=== PATIENT | female | born 1975 | race Caucasian/White ===

== ENCOUNTER 2016-11-04 17:43 | Emergency (ER) | payer MEDICAID ==
[~2016-11-04] VITALS: Ht 175.3 cm; Wt 60.0 kg
[~2016-11-04 17:43] MED LIST: CYCL7.5T25 PO; DIVA125T2 PO; DIVA500T9 PO; METH500T97 PO; OXYC-229 PO
[2016-11-04] MEDS ORDERED: SODIUM CHLORIDE 0.9% 1,000ML IVBOLUS ONE (18:00)
[2016-11-04] MEDS ORDERED: SODIUM CHLORIDE FLUSH 10ML SYR IVF ONE (18:00)
[2016-11-04] MEDS ORDERED: PROCHLORPERAZINE 5 MG/ML, 2ML IVPush ONE (18:00)
[2016-11-04] MEDS ORDERED: ONDANSETRON 2MG/ML, 2ML IVPush ONE (18:00)
[2016-11-04] MEDS ORDERED: TRAZ100T15 PO (18:15)
[2016-11-04] MEDS ORDERED: HYDR50TA13 PO (18:15)
[2016-11-04] MEDS ORDERED: GABA300C10 PO (18:15)
[2016-11-04] MEDS ORDERED: BENZ0.5T PO (18:15)
[2016-11-04] MEDS ORDERED: DIVA250T14 PO (18:15)
[2016-11-04] MEDS ORDERED: PRAZ2CAP2 PO (18:15)
[2016-11-04] MEDS ORDERED: BUSP15TA PO (18:15)
[2016-11-04] MEDS ORDERED: ONDANSETRON 2MG/ML, 2ML ONE (18:22)
[2016-11-04] MEDS ORDERED: PROCHLORPERAZINE 5 MG/ML, 2ML ONE (18:22)
[2016-11-04 18:34] LABS: BLOOD UREA NITROGEN 13 mg/dL (7-18)
[2016-11-04 18:39] LABS: ASPARTATE AMINO TRANSFERASE 18 U/L (15-37)
[2016-11-04 20:39] VITALS: BP 122/64
== END 2016-11-04 20:42 | disposition home or self-care (01) ==
LOC: ED 20:20
DX: R11.2 Nausea with vomiting, unspecified (principal)
CPT/HCPCS: 36415; 80053; 81001; 83605; 85025; 87086; 96361; 96374; 99284; J0780; J7030

== ENCOUNTER 2017-03-30 10:44 | Emergency (ER) | payer MEDICAID ==
[~2017-03-30] VITALS: Ht 175.3 cm; Wt 53.0 kg
[~2017-03-30 10:44] MED LIST changes: +BENZ0.5T PO; +BUSP15TA PO; +DIVA-68 PO; +DIVA250T14 PO; -DIVA500T9 PO; +GABA300C10 PO; +HYDR50TA13 PO; -OXYC-229 PO; +OXYC-307 PO; +PRAZ2CAP2 PO; +TRAZ100T15 PO
[2017-03-30 11:05] VITALS: BP 130/82
[2017-03-30] MEDS ORDERED: METHOCARBAMOL 750 MG TABLET PO ONE (11:30)
[2017-03-30] MEDS ORDERED: KETOROLAC 30 MG/1 ML IM ONE (11:30)
[2017-03-30] MEDS ORDERED: METHOCARBAMOL 750 MG TABLET ONE (11:40)
[2017-03-30] MEDS ORDERED: KETOROLAC 30 MG/1 ML ONE (11:40)
== END 2017-03-30 12:43 | disposition home or self-care (01) ==
LOC: ED 12:37
DX: S16.1XXA Strain of muscle, fascia and tendon at neck level, initial encounter (principal); F43.10 Post-traumatic stress disorder, unspecified; M41.9 Scoliosis, unspecified; M79.7 Fibromyalgia; F31.9 Bipolar disorder, unspecified; W22.8XXA Striking against or struck by other objects, initial encounter; Y93.89 Activity, other specified; Y92.098 Other place in other non-institutional residence as the place of occurrence of the external cause; Y99.8 Other external cause status
CPT/HCPCS: 72050; 96372; 99284; J1885

== ENCOUNTER 2017-08-24 10:52 | Emergency (ER) | payer MEDICAID ==
[~2017-08-24] VITALS: Ht 175.3 cm; Wt 64.3 kg
[~2017-08-24 10:52] MED LIST changes: +QUET50TA5 PO
[2017-08-24 11:53] VITALS: BP 127/76
[2017-08-24] MEDS ORDERED: SODIUM CHLORIDE 0.9% 1,000ML IVBOLUS ONE (12:00)
[2017-08-24] MEDS ORDERED: SODIUM CHLORIDE FLUSH 10ML SYR IVF ONE (12:00)
[2017-08-24 12:06] LABS: BASOPHILS # (AUTO) 0.02 x10^3/uL (0-0.1); BASOPHILS % (AUTO) 0 % (0-1); EOSINOPHILS # (AUTO) 0.02 x10^3/uL (0-0.4); EOSINOPHILS % (AUTO) 0 % (1-7); LYMPHOCYTES # (AUTO) 1.81 x10^3/uL (1-3.4); LYMPHOCYTES % (AUTO) 26 % (22-44); MD NO; MEAN CORPUSCULAR HEMOGLOBIN 31.5 pg (27.0-34.8); MEAN CORPUSCULAR HGB CONC 33.3 g/dL (32.4-35.8); MEAN CORPUSCULAR VOLUME 94.4 fL (80-100); MONOCYTES # (AUTO) 0.55 x10^3/uL (0.2-0.8); MONOCYTES % (AUTO) 8 % (2-9); NEUTROPHILS # (AUTO) 4.69 x10^3/uL (1.8-6.8); NEUTROPHILS % (AUTO) 66 % (42-75); PLATELET COUNT 417 x10^3/uL (130-400); RED BLOOD COUNT 4.18 x10^6/uL (3.82-5.3); RED CELL DISTRIBUTION WIDTH 13.1 % (9.6-15.2)
[2017-08-24 12:29] LABS: ALBUMIN 3.8 g/dL (3.4-5.0); ANION GAP 8 mmol/L (5-15); CALCIUM 8.8 mg/dL (8.5-10.1); CHLORIDE 110 mmol/L (98-107); CREATININE 0.58 mg/dL (0.55-1.02)
[2017-08-24 12:33] LABS: FREE T4 (FREE THYROXINE) 1.02 ng/dL (0.76-1.46); TROPONIN I < 0.015 ng/mL (0.000-0.045)
== END 2017-08-24 13:46 | disposition home or self-care (01) ==
LOC: ED 12:20
DX: R00.2 Palpitations (principal); M41.9 Scoliosis, unspecified; M19.90 Unspecified osteoarthritis, unspecified site; F31.9 Bipolar disorder, unspecified; F17.200 Nicotine dependence, unspecified, uncomplicated
CPT/HCPCS: 36415; 70450; 71045; 80048; 82040; 84439; 84443; 84484; 84703; 85025; 93005; 96360; 96361; 99285; J7030

== ENCOUNTER 2017-09-04 13:20 | Inpatient (IN) | payer MEDICAID ==
[~2017-09-04] VITALS: Ht 175.3 cm; Wt 70.3 kg
[2017-09-04] MEDS ORDERED: ALBUTEROL/IPRATROPIUM 2.5MG/0.5MG, 3 ML NPPB SCH (14:00)
[2017-09-04 14:26] LABS: RAPID INFLUENZA A Negative (Negative); RAPID INFLUENZA B Negative (Negative)
[2017-09-04] MEDS ORDERED: ALBUTEROL/IPRATROPIUM 2.5MG/0.5MG, 3 ML ONE (14:26)
[2017-09-04 14:27] LABS: BASOPHILS # (AUTO) 0.05 x10^3/uL (0-0.1); BASOPHILS % (AUTO) 1 % (0-1); EOSINOPHILS % (AUTO) 0 % (1-7); LYMPHOCYTES # (AUTO) 1.25 x10^3/uL (1-3.4); LYMPHOCYTES % (AUTO) 13 % (22-44); MD NO; MEAN CORPUSCULAR HEMOGLOBIN 31.6 pg (27.0-34.8); MEAN CORPUSCULAR HGB CONC 33.4 g/dL (32.4-35.8); MEAN CORPUSCULAR VOLUME 94.6 fL (80-100); MONOCYTES # (AUTO) 1.11 x10^3/uL (0.2-0.8); MONOCYTES % (AUTO) 12 % (2-9); NEUTROPHILS # (AUTO) 7.12 x10^3/uL (1.8-6.8); NEUTROPHILS % (AUTO) 75 % (42-75); PLATELET COUNT 354 x10^3/uL (130-400); RED BLOOD COUNT 4.24 x10^6/uL (3.82-5.3); RED CELL DISTRIBUTION WIDTH 13.8 % (9.6-15.2)
[2017-09-04 14:38] LABS: ALBUMIN 3.9 g/dL (3.4-5.0); ANION GAP 9 mmol/L (5-15); CALCIUM 8.3 mg/dL (8.5-10.1); CHLORIDE 107 mmol/L (98-107); CREATININE 0.68 mg/dL (0.55-1.02)
[2017-09-04] MEDS ORDERED: ACETAMINOPHEN 500 MG TABLET PO ONE (15:00)
[2017-09-04] MEDS ORDERED: ACETAMINOPHEN 500 MG TABLET ONE (15:21)
[2017-09-04] MEDS ORDERED: CEFTRIAXONE PMX 1GM/50ML 50 ML ONE (17:11)
[2017-09-04] MEDS ORDERED: AZITHROMYCIN 500 MG in SODIUM CHLORIDE 0.9% 250 ML IVPB ONE (17:30)
[2017-09-04] MEDS ORDERED: CEFTRIAXONE PMX 1GM/50ML 50 ML IVPB ONE (17:30)
[2017-09-04] MEDS ORDERED: SODIUM CHLORIDE FLUSH 10ML SYR IVF PRN (18:00)
[2017-09-04] MEDS ORDERED: ACETAMINOPHEN 325 MG TABLET PO ONE (18:30)
[2017-09-04] MEDS ORDERED: DOCUSATE 100 MG CAPSULE PO PRN (19:30)
[2017-09-04] MEDS ORDERED: ONDANSETRON ODT 4 MG PO PRN (19:30)
[2017-09-04] MEDS ORDERED: ALBUTEROL/IPRATROPIUM 2.5MG/0.5MG, 3 ML IPPB PRN (19:30)
[2017-09-04 19:47] VITALS: BP 111/70
[2017-09-04] MEDS: NAPROXEN 250 MG TABLET PO SCH (21:24)
[2017-09-04] MEDS: hydrOXyzine 50MG TABLET PO SCH (21:25)
[2017-09-04 21:33] VITALS: BP 111/70
[2017-09-05 03:00] VITALS: BP 98/75
[2017-09-05 06:00] LABS: ANION GAP 7 mmol/L (5-15); CALCIUM 7.8 mg/dL (8.5-10.1); CHLORIDE 112 mmol/L (98-107)
[2017-09-05 06:03] LABS: CREATININE 0.56 mg/dL (0.55-1.02)
[2017-09-05 07:00] VITALS: BP 105/71
[2017-09-05] MEDS: NAPROXEN 500 MG TABLET PO SCH (08:18)
[2017-09-05 12:55] VITALS: BP 118/71
[2017-09-05] MEDS: GUAIFENESIN/DM 100-10MG, 5ML UDC PO PRN ×2 (15:50→22:56)
[2017-09-05] MEDS: ALBUTEROL/IPRATROPIUM 2.5MG/0.5MG, 3 ML NPPB SCH ×2 (16:12→19:34)
[2017-09-05] MEDS ORDERED: NICOTINE 7 MG/24 HR PATCH.TD24 ONE (16:54)
[2017-09-05] MEDS: NAPROXEN 250 MG TABLET PO SCH (16:57)
[2017-09-05] MEDS: NICOTINE 7 MG/24 HR PATCH.TD24 TD SCH (16:58)
[2017-09-05] MEDS: AZITHROMYCIN 500 MG in SODIUM CHLORIDE 0.9% 250 ML IV SCH (18:42)
[2017-09-05 20:20] VITALS: BP 112/65
[2017-09-05] MEDS: hydrOXyzine 50MG TABLET PO SCH (20:23)
[2017-09-05] MEDS: CEFTRIAXONE PMX 1GM/50ML 50 ML IV SCH (20:23)
[2017-09-05] MEDS: TEMAZEPAM 15 MG CAPSULE PO PRN (22:56)
[2017-09-06] MEDS: ACETAMINOPHEN 325 MG TABLET PO PRN ×3 (01:25→15:39)
[2017-09-06 01:27] VITALS: BP 90/58
[2017-09-06] MEDS: ALBUTEROL/IPRATROPIUM 2.5MG/0.5MG, 3 ML NPPB SCH ×2 (07:00→11:34)
[2017-09-06] MEDS: GUAIFENESIN/DM 100-10MG, 5ML UDC PO PRN ×3 (07:39→20:19)
[2017-09-06] MEDS: NAPROXEN 500 MG TABLET PO SCH (07:39)
[2017-09-06 07:41] VITALS: BP 116/71
[2017-09-06 13:05] VITALS: BP 115/70
[2017-09-06] MEDS: NICOTINE 7 MG/24 HR PATCH.TD24 TD SCH (15:31)
[2017-09-06] MEDS ORDERED: ALBUTEROL/IPRATROPIUM 2.5MG/0.5MG, 3 ML ONE (15:50)
[2017-09-06] MEDS: AZITHROMYCIN 500 MG in SODIUM CHLORIDE 0.9% 250 ML IV SCH (18:54)
[2017-09-06] MEDS: NAPROXEN 250 MG TABLET PO SCH (18:54)
[2017-09-06 20:06] VITALS: BP 124/69
[2017-09-06] MEDS: hydrOXyzine 50MG TABLET PO SCH (20:19)
[2017-09-06] MEDS: CEFTRIAXONE PMX 1GM/50ML 50 ML IV SCH (20:19)
[2017-09-06] MEDS: TEMAZEPAM 15 MG CAPSULE PO PRN (22:31)
[2017-09-07 03:02] VITALS: BP 122/70
[2017-09-07 05:30] LABS: BASOPHILS # (AUTO) 0.03 x10^3/uL (0-0.1); BASOPHILS % (AUTO) 0 % (0-1); EOSINOPHILS # (AUTO) 0.01 x10^3/uL (0-0.4); EOSINOPHILS % (AUTO) 0 % (1-7); LYMPHOCYTES % (AUTO) 43 % (22-44); MD NO; MEAN CORPUSCULAR HEMOGLOBIN 31.8 pg (27.0-34.8); MEAN CORPUSCULAR HGB CONC 33.1 g/dL (32.4-35.8); MEAN CORPUSCULAR VOLUME 96.1 fL (80-100); MEAN PLATELET VOLUME 7.1 fL (7.4-10.4); MONOCYTES # (AUTO) 0.73 x10^3/uL (0.2-0.8); MONOCYTES % (AUTO) 10 % (2-9); NEUTROPHILS # (AUTO) 3.66 x10^3/uL (1.8-6.8); NEUTROPHILS % (AUTO) 47 % (42-75); PLATELET COUNT 306 x10^3/uL (130-400); RED BLOOD COUNT 3.35 x10^6/uL (3.82-5.3); RED CELL DISTRIBUTION WIDTH 13.4 % (9.6-15.2)
[2017-09-07 05:31] LABS: CHLORIDE 111 mmol/L (98-107)
[2017-09-07 05:43] LABS: ALANINE AMINOTRANSFERASE 19 U/L (12-78); ALBUMIN 2.9 g/dL (3.4-5.0); ALKALINE PHOSPHATASE 67 U/L (45-117); ANION GAP 7 mmol/L (5-15); BILIRUBIN,TOTAL 0.3 mg/dL (0.2-1.0); CREATININE 0.58 mg/dL (0.55-1.02); TOTAL PROTEIN 6.4 g/dL (6.4-8.2)
[2017-09-07 07:45] VITALS: BP 129/79
[2017-09-07] MEDS: GUAIFENESIN/DM 100-10MG, 5ML UDC PO PRN ×2 (08:44→19:17)
[2017-09-07] MEDS: NAPROXEN 500 MG TABLET PO SCH (08:44)
[2017-09-07] MEDS ORDERED: ALBUTEROL SULFATE 2.5 MG/3 ML ONE (11:15)
[2017-09-07 14:39] VITALS: BP 126/79
[2017-09-07] MEDS: ACETAMINOPHEN 325 MG TABLET PO PRN ×2 (14:43→19:17)
[2017-09-07] MEDS ORDERED: ALBUTEROL/IPRATROPIUM 2.5MG/0.5MG, 3 ML NPPB PRN (15:00)
[2017-09-07] MEDS: NICOTINE 7 MG/24 HR PATCH.TD24 TD SCH (17:17)
[2017-09-07] MEDS: AZITHROMYCIN 500 MG in SODIUM CHLORIDE 0.9% 250 ML IV SCH (19:17)
[2017-09-07 20:02] VITALS: BP 112/75
[2017-09-07] MEDS: CEFTRIAXONE PMX 1GM/50ML 50 ML IV SCH (20:45)
[2017-09-07] MEDS: hydrOXyzine 50MG TABLET PO SCH (20:45)
[2017-09-07] MEDS: NAPROXEN 250 MG TABLET PO SCH (20:45)
[2017-09-08] MEDS: GUAIFENESIN/DM 100-10MG, 5ML UDC PO PRN (02:13)
[2017-09-08 02:22] VITALS: BP 112/67
[2017-09-08 07:30] VITALS: BP 114/69
[2017-09-08 09:18] VITALS: BP 129/78
[2017-09-08] MEDS ORDERED: ALBU8.5H8 INH (09:21)
[2017-09-08] MEDS ORDERED: PRED20TA PO (09:21)
[2017-09-08] MEDS ORDERED: GUAI5SYR PO (09:21)
[2017-09-08] MEDS ORDERED: LEVO750T26 PO (09:29)
[2017-09-08] MEDS: NAPROXEN 500 MG TABLET PO SCH (10:15)
[2017-09-08] MEDS ORDERED: PNEUMOCOCCAL 23 VACCINE IM-VACC ONE (10:30)
== END 2017-09-08 12:13 | disposition home or self-care (01) | DRG 193 ==
LOC: ED 17:24 → EDIP 17:46 → 4NOR 19:03 → DCLOUNGE 09-08 12:09
PROVIDERS: ADMIT Internal Medicine; ATTEND Internal Medicine
DX: J15.9 Unspecified bacterial pneumonia (principal); J96.01 Acute respiratory failure with hypoxia; J44.0 Chronic obstructive pulmonary disease with (acute) lower respiratory infection; N17.9 Acute kidney failure, unspecified; J45.31 Mild persistent asthma with (acute) exacerbation; F17.210 Nicotine dependence, cigarettes, uncomplicated; F43.10 Post-traumatic stress disorder, unspecified; F31.9 Bipolar disorder, unspecified; I10 Essential (primary) hypertension; M79.7 Fibromyalgia; Z83.3 Family history of diabetes mellitus
CPT/HCPCS: 36415; 71046; 71275; 80048; 80053; 82040; 83605; 83735; 84100; 85025; 87040; 87400; 90732; 93005; 94640; 96365; 96366; 96368; J0456; J0696; J7620; J7050; J7512

== ENCOUNTER 2017-09-30 12:45 | Emergency (ER) | payer MEDICAID ==
[~2017-09-30] VITALS: Ht 175.3 cm; Wt 66.5 kg
[~2017-09-30 12:45] MED LIST changes: +ALBU8.5H8 INH; +GUAI5SYR PO; +LEVO750T26 PO; +PRED20TA PO
[2017-09-30 12:47] VITALS: BP 119/73
== END 2017-09-30 14:05 | disposition home or self-care (01) ==
LOC: ED 13:43
DX: R07.89 Other chest pain (principal)
CPT/HCPCS: 71046; 99284

== ENCOUNTER 2017-10-11 10:42 | Emergency (ER) | payer MEDICAID ==
[~2017-10-11] VITALS: Ht 175.3 cm; Wt 65.6 kg
[2017-10-11 10:50] VITALS: BP 142/80
[2017-10-11] MEDS ORDERED: KETOROLAC 30 MG/1 ML IM ONE (11:30)
[2017-10-11] MEDS ORDERED: KETOROLAC 30 MG/1 ML ONE (11:36)
== END 2017-10-11 12:48 | disposition home or self-care (01) ==
LOC: ED 12:42
DX: R07.89 Other chest pain (principal); J15.9 Unspecified bacterial pneumonia; J45.909 Unspecified asthma, uncomplicated; F17.200 Nicotine dependence, unspecified, uncomplicated
CPT/HCPCS: 71046; 73630; 96372; 99284; J1885

== ENCOUNTER 2017-11-24 11:55 | Emergency (ER) | payer MEDICAID ==
[~2017-11-24] VITALS: Ht 175.3 cm; Wt 63.6 kg
[~2017-11-24 11:55] MED LIST changes: -BENZ0.5T PO; +BENZ0.5T35 PO
[2017-11-24 13:20] LABS: MEAN CORPUSCULAR HEMOGLOBIN 29.2 pg (27.0-34.8); MEAN CORPUSCULAR HGB CONC 32.9 g/dL (32.4-35.8); MEAN CORPUSCULAR VOLUME 88.7 fL (80-100); MEAN PLATELET VOLUME 6.9 fL (7.4-10.4); PLATELET COUNT 483 x10^3/uL (130-400); RED BLOOD COUNT 4.22 x10^6/uL (3.82-5.3); RED CELL DISTRIBUTION WIDTH 15.4 % (9.6-15.2)
[2017-11-24 13:27] LABS: ALANINE AMINOTRANSFERASE 30 U/L (12-78); ALBUMIN 3.9 g/dL (3.4-5.0); ANION GAP 6 mmol/L (5-15); CALCIUM 8.7 mg/dL (8.5-10.1); CHLORIDE 112 mmol/L (98-107); CREATININE 0.77 mg/dL (0.55-1.02)
[2017-11-24 13:31] LABS: ALKALINE PHOSPHATASE 87 U/L (45-117); TOTAL PROTEIN 8.2 g/dL (6.4-8.2)
[2017-11-24 13:33] LABS: BILIRUBIN,TOTAL 0.4 mg/dL (0.2-1.0)
[2017-11-24 13:58] LABS: BASOPHILS # (AUTO) 0.06 x10^3/uL (0-0.1); BASOPHILS % (AUTO) 0 % (0-1); EOSINOPHILS # (AUTO) 0.01 x10^3/uL (0-0.4); EOSINOPHILS % (AUTO) 0 % (1-7); LYMPHOCYTES # (AUTO) 1.48 x10^3/uL (1-3.4); LYMPHOCYTES % (AUTO) 8 % (22-44); MD SCAN; MONOCYTES # (AUTO) 0.74 x10^3/uL (0.2-0.8); MONOCYTES % (AUTO) 4 % (2-9); NEUTROPHILS # (AUTO) 16.03 x10^3/uL (1.8-6.8); NEUTROPHILS % (AUTO) 88 % (42-75)
[2017-11-24] MEDS ORDERED: MORPHINE SULFATE 4 MG/ML, 1ML IVPush PRN (15:00)
[2017-11-24] MEDS ORDERED: TAMSULOSIN 0.4 MG CAP.ER.24H PO ONE (15:00)
[2017-11-24] MEDS ORDERED: METOCLOPRAMIDE 5 MG/ML, 2ML IVPush ONE (15:00)
[2017-11-24] MEDS ORDERED: SODIUM CHLORIDE FLUSH 10ML SYR IVF ONE (15:00)
[2017-11-24] MEDS ORDERED: KETOROLAC 30 MG/1 ML IVPush ONE (15:00)
[2017-11-24] MEDS ORDERED: SODIUM CHLORIDE 0.9% 1,000ML IVBOLUS ONE (15:00)
[2017-11-24] MEDS ORDERED: METOCLOPRAMIDE 5 MG/ML, 2ML ONE (15:02)
[2017-11-24] MEDS ORDERED: MORPHINE SULFATE 4 MG/ML, 1ML ONE (15:02)
[2017-11-24] MEDS ORDERED: KETOROLAC 30 MG/1 ML ONE (15:02)
[2017-11-24] MEDS ORDERED: TAMSULOSIN 0.4 MG CAP.ER.24H ONE (15:02)
[2017-11-24 16:27] LABS: MICROSCOPIC INDICATED
[2017-11-24 16:40] LABS: CULTURE INDICATED? NO
[2017-11-24] MEDS ORDERED: GABA300C10 PO (16:50)
[2017-11-24] MEDS ORDERED: TRAZ100T15 PO (16:51)
[2017-11-24] MEDS ORDERED: OLANZAPINE (16:52)
[2017-11-24] MEDS ORDERED: NAPR220C2 PO (16:53)
[2017-11-24 18:23] VITALS: BP 101/61
== END 2017-11-24 18:26 | disposition home or self-care (01) ==
LOC: ED 14:48
DX: N20.1 Calculus of ureter (principal); N23 Unspecified renal colic; J45.909 Unspecified asthma, uncomplicated; M19.90 Unspecified osteoarthritis, unspecified site; M79.7 Fibromyalgia; F31.9 Bipolar disorder, unspecified; Z88.8 Allergy status to other drugs, medicaments and biological substances; Z91.040 Latex allergy status
CPT/HCPCS: 36415; 74176; 80053; 81001; 84703; 85025; 96361; 96374; 96375; 99285; J1885; J2765; J7030

== ENCOUNTER → 2017-12-17 | Outpatient (CLI) | payer MEDICAID ==
[~2017-12-17] MED LIST changes: +FLUT16SP NS; +IBUP-1222 PO; +NAPR220C2 PO; +OLAN5TAB9 PO; +OLANZAPINE; +ONDA4TAB13 SL; +TAMS0.4C2 PO
== END | disposition home or self-care (01) ==
LOC: RAD 14:21
PROVIDERS: ATTEND Internal Medicine Infectious Disease
DX: J18.9 Pneumonia, unspecified organism (principal)
CPT/HCPCS: 71046

== ENCOUNTER 2017-12-19 20:24 | Emergency (ER) | payer MEDICAID ==
[~2017-12-19] VITALS: Ht 175.3 cm; Wt 60.3 kg
[2017-12-19 20:27] VITALS: BP 127/79
== END 2017-12-19 22:07 | disposition home or self-care (01) ==
LOC: ED 21:23
DX: T82.898A Other specified complication of vascular prosthetic devices, implants and grafts, initial encounter (principal); M19.90 Unspecified osteoarthritis, unspecified site; F43.10 Post-traumatic stress disorder, unspecified; M41.9 Scoliosis, unspecified; F31.9 Bipolar disorder, unspecified; M79.7 Fibromyalgia; F17.200 Nicotine dependence, unspecified, uncomplicated; Y92.89 Other specified places as the place of occurrence of the external cause
CPT/HCPCS: 99282; 99283

== ENCOUNTER 2018-01-11 09:40 | Emergency (ER) | payer MEDICAID ==
[~2018-01-11] VITALS: Ht 175.3 cm; Wt 59.9 kg
[2018-01-11] MEDS ORDERED: SODIUM CHLORIDE 0.9% 1,000ML IVBOLUS ONE (10:30)
[2018-01-11] MEDS ORDERED: ONDANSETRON 2MG/ML, 2ML IVPush ONE (10:30)
[2018-01-11] MEDS ORDERED: FAMOTIDINE 20 MG/2 ML IVP ONE (10:30)
[2018-01-11 10:44] LABS: ALANINE AMINOTRANSFERASE 20 U/L (12-78); ALBUMIN 3.2 g/dL (3.4-5.0); ANION GAP 6 mmol/L (5-15); CALCIUM 8.6 mg/dL (8.5-10.1); CHLORIDE 110 mmol/L (98-107); CREATININE 0.75 mg/dL (0.55-1.02)
[2018-01-11] MEDS ORDERED: FAMOTIDINE 20 MG/2 ML ONE (10:48)
[2018-01-11] MEDS ORDERED: ONDANSETRON 2MG/ML, 2ML ONE (10:48)
[2018-01-11 10:49] LABS: ALKALINE PHOSPHATASE 86 U/L (45-117); BILIRUBIN,TOTAL 0.2 mg/dL (0.2-1.0); TOTAL PROTEIN 7.8 g/dL (6.4-8.2)
[2018-01-11 10:54] LABS: MICROSCOPIC NOT IND
[2018-01-11 10:57] LABS: BASOPHILS # (AUTO) 0.02 x10^3/uL (0-0.1); BASOPHILS % (AUTO) 0 % (0-1); EOSINOPHILS # (AUTO) 0.15 x10^3/uL (0-0.4); EOSINOPHILS % (AUTO) 2 % (1-7); LYMPHOCYTES % (AUTO) 22 % (22-44); MD NO; MEAN CORPUSCULAR HEMOGLOBIN 27.9 pg (27.0-34.8); MEAN CORPUSCULAR HGB CONC 31.9 g/dL (32.4-35.8); MEAN CORPUSCULAR VOLUME 87.4 fL (80-100); MEAN PLATELET VOLUME 6.8 fL (7.4-10.4); MONOCYTES # (AUTO) 0.55 x10^3/uL (0.2-0.8); MONOCYTES % (AUTO) 6 % (2-9); NEUTROPHILS # (AUTO) 6.55 x10^3/uL (1.8-6.8); NEUTROPHILS % (AUTO) 71 % (42-75); PLATELET COUNT 459 x10^3/uL (130-400); RED CELL DISTRIBUTION WIDTH 18.8 % (9.6-15.2)
[2018-01-11 10:59] LABS: CULTURE INDICATED? NO
[2018-01-11 11:50] LABS: CLOSTRIDIUM DIFFICILE ANTIGEN POSITIVE; CLOSTRIDIUM DIFFICILE TOXIN NEGATIVE (Negative)
[2018-01-11 13:18] VITALS: BP 100/70
== END 2018-01-11 14:21 | disposition home or self-care (01) ==
LOC: ED 10:44
DX: A04.72 Enterocolitis due to Clostridium difficile, not specified as recurrent (principal); J45.909 Unspecified asthma, uncomplicated; F17.200 Nicotine dependence, unspecified, uncomplicated; F31.9 Bipolar disorder, unspecified; Z88.8 Allergy status to other drugs, medicaments and biological substances; Z91.040 Latex allergy status
CPT/HCPCS: 36415; 80053; 81003; 83690; 84703; 85025; 87324; 87493; 89055; 96361; 96374; 96375; 99284; J2405; J7030; S0028

== ENCOUNTER 2018-11-21 17:53 | Emergency (ER) | payer MEDICAID ==
[~2018-11-21] VITALS: Ht 175.3 cm; Wt 74.3 kg
[~2018-11-21 17:53] MED LIST changes: +DIVA-61 PO; -DIVA-68 PO; +TRAZ-137 PO; -TRAZ100T15 PO
[2018-11-21 18:33] LABS: MICROSCOPIC NOT IND
--- NOTE | 2018-11-21 18:34 | NUR ---
pt to room from lobby
--- NOTE | 2018-11-21 18:48 | NUR ---
FIRST CONTACT WITH PT. PT CO BILAT LOW BACK PAIN X SEVERAL WORSENING,WORSENING TO RADIATE TO FLANK/ABD. "I THINK I HURT MYSELF DURING SEX". DENIES SPECIFIC TRAUMA/URINARY SYMPTOMS/N/V/D/CONSTIPATION. HX OF BACK PAIN, SCOLIOSIS AND DDD. SO AT BEDSIDE.
[2018-11-21] MEDS ORDERED: METHOCARBAMOL 750 MG TABLET ONE (19:15)
--- NOTE | 2018-11-21 19:18 | NUR ---
BREAK RN : BLOOD WAS DRAWN MEDICATED PT IS IN IMAGING NOW
[2018-11-21] MEDS ORDERED: METHOCARBAMOL 750 MG TABLET PO ONE (19:30)
[2018-11-21 19:34] LABS: BASOPHILS # (AUTO) 0.08 x10^3/uL (0-0.1); BASOPHILS % (AUTO) 1 % (0-1); EOSINOPHILS # (AUTO) 0.05 x10^3/uL (0-0.4); EOSINOPHILS % (AUTO) 1 % (1-7); LYMPHOCYTES # (AUTO) 2.49 x10^3/uL (1-3.4); LYMPHOCYTES % (AUTO) 26 % (22-44); MD NO; MEAN CORPUSCULAR HEMOGLOBIN 28.8 pg (27.0-34.8); MEAN CORPUSCULAR HGB CONC 33.1 g/dL (32.4-35.8); MEAN CORPUSCULAR VOLUME 86.9 fL (80-100); MEAN PLATELET VOLUME 6.9 fL (7.4-10.4); MONOCYTES # (AUTO) 0.79 x10^3/uL (0.2-0.8); MONOCYTES % (AUTO) 8 % (2-9); NEUTROPHILS # (AUTO) 6.06 x10^3/uL (1.8-6.8); NEUTROPHILS % (AUTO) 64 % (42-75); PLATELET COUNT 463 x10^3/uL (130-400); RED BLOOD COUNT 3.99 x10^6/uL (3.82-5.3)
[2018-11-21 19:38] LABS: ALANINE AMINOTRANSFERASE 26 U/L (12-78); ALBUMIN 3.7 g/dL (3.4-5.0); ANION GAP 6 mmol/L (5-15); CHLORIDE 113 mmol/L (98-107); CREATININE 0.85 mg/dL (0.55-1.02)
[2018-11-21 19:43] LABS: ALKALINE PHOSPHATASE 87 U/L (45-117); BILIRUBIN,TOTAL < 0.1 mg/dL (0.2-1.0); TOTAL PROTEIN 8.6 g/dL (6.4-8.2)
[2018-11-21 19:48] VITALS: BP 117/76
--- NOTE | 2018-11-21 20:56 | NUR ---
DC EDUCATION PROVIDED, PT DEMONSTRATES UNDERSTANDING. PT AMBULATED STEADILY TO [facility] RN AND SO. SO TO TRANSPORT PT HOME
== END 2018-11-21 20:58 | disposition home or self-care (01) ==
LOC: ED 20:53
DX: S39.012A Strain of muscle, fascia and tendon of lower back, initial encounter (principal); S29.012A Strain of muscle and tendon of back wall of thorax, initial encounter; M51.34 Other intervertebral disc degeneration, thoracic region; R10.84 Generalized abdominal pain; J45.909 Unspecified asthma, uncomplicated; X58.XXXA Exposure to other specified factors, initial encounter; Y93.89 Activity, other specified; Y92.89 Other specified places as the place of occurrence of the external cause; Y99.8 Other external cause status
CPT/HCPCS: 36415; 72072; 72110; 80053; 81003; 83690; 84703; 85025; 99284

== ENCOUNTER 2019-01-07 14:19 | Emergency (ER) | payer MEDICAID ==
[~2019-01-07] VITALS: Ht 175.3 cm; Wt 72.0 kg
[~2019-01-07 14:19] MED LIST changes: -FLUT16SP NS; +FLUT16SP24 NS
[2019-01-07] MEDS ORDERED: ALBUTEROL/IPRATROPIUM 2.5MG/0.5MG, 3 ML NPPB ONE (15:00)
[2019-01-07] MEDS ORDERED: ALBUTEROL/IPRATROPIUM 2.5MG/0.5MG, 3 ML ONE (15:02)
--- NOTE | 2019-01-07 15:17 | NUR ---
First contact with pt. Pt states hx of asthma, states over the last 2-3 days has been having cough, wheezing not relieved by rescue inhaler. Pt states she feels better after breathing tx she received here. Pt speaking in full sentences, resp even and unlabored.
[2019-01-07 15:18] VITALS: BP 125/70
--- NOTE | 2019-01-07 15:29 | NUR ---
Pt medicated per MAR. Pt and her friend at bedside given crackers and sprite per request. Pt denies other needs.
== END 2019-01-07 16:25 | disposition home or self-care (01) ==
LOC: ED 16:07
DX: J45.31 Mild persistent asthma with (acute) exacerbation (principal); J06.9 Acute upper respiratory infection, unspecified; F17.200 Nicotine dependence, unspecified, uncomplicated
CPT/HCPCS: 71046; 93005; 94640; 99283; J7512; J7620

== ENCOUNTER 2019-12-16 11:23 | Emergency (ER) | payer MEDICAID ==
[~2019-12-16] VITALS: Ht 175.3 cm; Wt 77.2 kg
[~2019-12-16 11:23] MED LIST changes: -HYDR50TA13 PO; +HYDR50TA99 PO; -TRAZ-137 PO; +TRAZ-175 PO
[2019-12-16 11:28] VITALS: BP 128/63
--- NOTE | 2019-12-16 11:45 | NUR ---
joy-dejuan is at the bedside for assessment
--- NOTE | 2019-12-16 11:55 | NUR ---
ice pack x2 provided
== END 2019-12-16 13:02 | disposition home or self-care (01) ==
LOC: ED 12:55
DX: S62.034A Nondisplaced fracture of proximal third of navicular [scaphoid] bone of right wrist, initial encounter for closed fracture (principal); S50.01XA Contusion of right elbow, initial encounter; M79.7 Fibromyalgia; J45.909 Unspecified asthma, uncomplicated; M19.90 Unspecified osteoarthritis, unspecified site; W18.39XA Other fall on same level, initial encounter; Y93.51 Activity, roller skating (inline) and skateboarding; Y92.488 Other paved roadways as the place of occurrence of the external cause; Y99.8 Other external cause status
CPT/HCPCS: 29125; 99284

== ENCOUNTER 2019-12-24 15:18 | Emergency (ER) | payer MEDICAID ==
[~2019-12-24] VITALS: Ht 175.3 cm; Wt 79.9 kg
[2019-12-24 15:24] VITALS: BP 149/82
--- NOTE | 2019-12-24 15:37 | NUR ---
THIS IS A 44 YOF W/ C/O LOW/MID BACK PAIN AFTER LIFTING BOXES AT HOME YESTERDAY. PT REPORTS SOME LEFT LEG NUMBNESS THIS MORNING BUT HAS SINCE RESOLVED. CMS INTACT. PT AMBULATED TO THE ROOM W/ A STEADY GAIT. PT RESTING ON GURNEY W/ CALL LIGHT IN REACH. VSABHINAV Banerjee. AT BEDSIDE FOR ED EVAL.
[2019-12-24] MEDS ORDERED: DIAZEPAM 5 MG TABLET ONE (15:59)
[2019-12-24] MEDS ORDERED: HYDROcodone/APAP 5/325 TABLET ONE (16:00)
[2019-12-24] MEDS ORDERED: HYDROcodone/APAP 5/325 TABLET PO ONE (16:00)
[2019-12-24] MEDS ORDERED: DIAZEPAM 5 MG TABLET PO ONE (16:00)
--- NOTE | 2019-12-24 16:01 | NUR ---
PT TO RAD.
--- NOTE | 2019-12-24 16:17 | NUR ---
ALL TESTS RESULTED. PT IS UP FOR RECHECK AT THIS TIME.
== END 2019-12-24 17:01 | disposition home or self-care (01) ==
LOC: ED 16:52
DX: S39.012A Strain of muscle, fascia and tendon of lower back, initial encounter (principal); M19.90 Unspecified osteoarthritis, unspecified site; J45.909 Unspecified asthma, uncomplicated; F17.200 Nicotine dependence, unspecified, uncomplicated; X58.XXXA Exposure to other specified factors, initial encounter; Y93.89 Activity, other specified; Y92.89 Other specified places as the place of occurrence of the external cause; Y99.8 Other external cause status
CPT/HCPCS: 72110; 99283